=== PATIENT | female | born 1990 | race Caucasian/White ===

== ENCOUNTER → 2023-05-20 09:49 | Outpatient (REF) | payer OTHER, SELFPAY | LOC: HWRAD 09:49 | PROVIDERS: ATTENDING PHYSICIAN Obstetrics & Gynecology; FAMILY PHYSICIAN Nurse Practitioner | DX: Z34.90 Encounter for supervision of normal pregnancy, unspecified, unspecified trimester (principal) | CPT/HCPCS: 76801; 76817 ==

== ENCOUNTER → 2023-06-03 09:18 | Outpatient (REF) | payer OTHER, SELFPAY | LOC: PNTC 09:18 | PROVIDERS: ATTENDING PHYSICIAN Obstetrics & Gynecology | DX: Z36.0 Encounter for antenatal screening for chromosomal anomalies (principal) | CPT/HCPCS: 76801; 76813 ==

== ENCOUNTER → 2023-07-29 07:05 | Outpatient (REF) | payer OTHER, SELFPAY | LOC: PNTC 07:05 | PROVIDERS: ATTENDING PHYSICIAN Obstetrics & Gynecology | DX: Z34.82 Encounter for supervision of other normal pregnancy, second trimester (principal) | CPT/HCPCS: 76805 ==

== ENCOUNTER → 2023-11-18 09:58 | Outpatient (REF) | payer OTHER, SELFPAY | LOC: PNTC 09:58 | PROVIDERS: ATTENDING PHYSICIAN Obstetrics & Gynecology | DX: O26.843 Uterine size-date discrepancy, third trimester (principal) | CPT/HCPCS: 36415; 76816 ==

== ENCOUNTER 2023-12-10 07:11 | Inpatient (IN) | payer OTHER, SELFPAY ==
[2023-12-10 07:41] LABS: Hematocrit 37.1 % (37.0-47.0); Hemoglobin 13.1 g/dL (12.0-16.0); Mean Corp Hgb Conc. 35.3 g/dL (33.0-37.0); Mean Corpuscular Hgb 30.8 pg (27.0-31.0); Mean Corpuscular Volume 87.3 fL (81.0-99.0); Mean Platelet Volume 12.1 fL (7.4-10.4); Platelet Count 244 10^3/uL (130-400); Red Blood Cell Count 4.25 10^6/uL (4.20-5.40); Red Cell Dist. Width 13.4 % (11.5-14.5); White Blood Cell Count 12.2 10^3/uL (4.8-10.8)
[2023-12-10 08:04] VITALS: BP 136/90; BMI 26.2
[2023-12-10] MEDS: TYLENOL 1000 MG PO (08:21)
[2023-12-10] MEDS: BICITRA 30 ML PO (08:22)
[2023-12-10 09:33] LABS: Cord ABG Comment CORD BLOOD
[2023-12-10 09:38] LABS: B.E. Cord ABG -3.9 mMOL/L; HCO3 Cord ABG 26.1 mmol/L; O2 Saturation % Cord ABG 26.3 %; PCO2 Cord ABG 70 mmHg; PO2 Cord ABG 18 mmHg; pH Cord ABG 7.18
[2023-12-10 09:42] LABS: B.E. Cord ABG -2.8 mMOL/L; HCO3 Cord ABG 24.5 mmol/L; O2 Saturation % Cord ABG 49.4 %; PCO2 Cord ABG 51 mmHg; PO2 Cord ABG 26 mmHg; pH Cord ABG 7.29
[2023-12-10] MEDS: METHERGINE INJECTION 0.2 MG IM (11:09)
[2023-12-10] MEDS: TYLENOL 650 MG PO ×2 (12:12→20:51)
[2023-12-10] MEDS: PITOCIN 30 UNITS/NSS 500 ML IV (12:49)
[2023-12-10] MEDS: PERCOCET 5/325 1 TABLET PO (12:55)
[2023-12-10] MEDS: TORADOL 15 MG IV ×2 (15:38→21:57)
[2023-12-11] MEDS: TORADOL 15 MG IV ×2 (04:35→09:54)
[2023-12-11] MEDS: TYLENOL 650 MG PO ×4 (04:41→21:06)
[2023-12-11 04:58] LABS: Hemoglobin 10.2 g/dL (12.0-16.0); Mean Corp Hgb Conc. 35.2 g/dL (33.0-37.0); Mean Corpuscular Hgb 31.7 pg (27.0-31.0); Mean Corpuscular Volume 90.1 fL (81.0-99.0); Mean Platelet Volume 12.1 fL (7.4-10.4); Platelet Count 206 10^3/uL (130-400); Red Blood Cell Count 3.22 10^6/uL (4.20-5.40); Red Cell Dist. Width 13.3 % (11.5-14.5)
[2023-12-11] MEDS: SENOKOT-S 1 TABLET PO (15:02)
[2023-12-11] MEDS: MOTRIN 600 MG PO ×2 (15:03→21:05)
[2023-12-12] MEDS: TYLENOL 650 MG PO ×2 (03:05→19:49)
[2023-12-12] MEDS: MOTRIN 600 MG PO ×3 (03:05→19:49)
[2023-12-12] MEDS: SENOKOT-S 1 TABLET PO (14:02)
[2023-12-12] MEDS: MYLICON 80 MG PO (19:56)
[2023-12-13] MEDS: TYLENOL 650 MG PO (01:56)
[2023-12-13] MEDS: MOTRIN 600 MG PO ×2 (01:57→08:43)
[2023-12-13] MEDS: SENOKOT-S 1 TABLET PO (08:43)
[2023-12-13] MEDS: MYLICON 80 MG PO (08:46)
--- NOTE | 2023-12-13 11:33 | W.DS.TRANS ---
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
-
Discharge Instructions:
Discharge Diagnosis/Procedures delivered by csection
Diet Regular
Activity No strenuous activity
Driving Restrictions No driving for 2 weeks
Bathing Restrictions OK to Shower
Instructions:
Stand-Alone Forms: LDRP Delivery
Changes to Home Medications: No
Discharge Medications:
[facility]
Zyrtec 1 tab PO DAILY 12/10/23
acetaminophen 325 mg tablet 650 mg (2 x 325 mg) PO Q4HPRN PRN mild pain #0 tabs 12/13/23
ibuprofen 600 mg tablet 600 mg PO Q6HPRN PRN cramps #0 tabs 12/13/23
Home Medication Changes
Pending Results: Yes
Additional Pending Results:
placental pathology
Total time spent discharging patient (in min): 30
[2023-12-14 11:25] LABS: Syphilis/T. pallidum Ab Reflex Negative (Negative)
== END 2023-12-13 13:15 | disposition home or self-care (01) | DRG 788 ==
LOC: LDRP 07:11
PROVIDERS: ADMITTING PHYSICIAN Obstetrics & Gynecology; FAMILY PHYSICIAN Family Medicine
PROC: 10D00Z1 Extraction of Products of Conception, Low, Open Approach (ICD-10-PCS; 2023-12-10)
DX: O32.1XX0 Maternal care for breech presentation, not applicable or unspecified (principal); O90.81 Anemia of the puerperium; R87.810 Cervical high risk human papillomavirus (HPV) DNA test positive; Z3A.39 39 weeks gestation of pregnancy; Z37.0 Single live birth; Z86.010 Personal history of colon polyps
CPT/HCPCS: 88307; 76815; 82803; 85027; 86780; 86850; 86900; 86901

== ENCOUNTER 2024-02-11 06:28 | Day surgery (SDC) | payer OTHER, SELFPAY ==
[2024-02-11 08:23] VITALS: BMI 24.8
[2024-02-11 08:24] VITALS: BMI 24.8
[2024-02-11 08:25] VITALS: BP 120/75
[2024-02-11 09:21] LABS: HCG, Urine Qualitative Screen Negative
[2024-02-11 10:47] VITALS: BP 113/72
[2024-02-11 11:00] VITALS: BP 113/73
[2024-02-11 11:15] VITALS: BP 110/55
== END 2024-02-11 11:25 | disposition home or self-care (01) ==
LOC: GI 06:28
PROVIDERS: ATTENDING PHYSICIAN Internal Medicine Gastroenterology
DX: Z12.11 Encounter for screening for malignant neoplasm of colon (principal); D12.4 Benign neoplasm of descending colon; D12.5 Benign neoplasm of sigmoid colon; K63.5 Polyp of colon; K64.0 First degree hemorrhoids; Z86.0101 Personal history of adenomatous and serrated colon polyps; Z98.890 Other specified postprocedural states; Z87.19 Personal history of other diseases of the digestive system
CPT/HCPCS: 45385; 88305; 81025

== ENCOUNTER 2025-02-08 06:27 | Day surgery (SDC) | payer OTHER, SELFPAY | END 2025-02-08 13:47 | disposition home or self-care (01) | LOC: GI 06:27 | PROVIDERS: ATTENDING PHYSICIAN Internal Medicine | DX: D12.6 Benign neoplasm of colon, unspecified (principal); D12.3 Benign neoplasm of transverse colon; D12.2 Benign neoplasm of ascending colon; Z98.890 Other specified postprocedural states | CPT/HCPCS: 45390; 45385; 88305 ==

== ENCOUNTER → 2025-03-08 11:30 | Outpatient (REF) | payer OTHER, SELFPAY | LOC: MRI 3T 11:30 | PROVIDERS: ATTENDING PHYSICIAN Internal Medicine | DX: R19.7 Diarrhea, unspecified (principal); R14.0 Abdominal distension (gaseous); R19.5 Other fecal abnormalities | CPT/HCPCS: 72197; 74183; A9585 ==